=== PATIENT | male | born 2000 | race Caucasian/White ===

== ENCOUNTER 2022-12-07 21:56 | Emergency (ER) | payer SELFPAY ==
[2022-12-07 21:57] VITALS: BP 128/75; PULSE 107; RESP 20; TEMP 36.7; O2SAT 100
--- NOTE | 2022-12-07 22:13 | PC.NURSE ---
Patient states he refuses anything to do with needles and we ain't going to be stick him with shit. Attending aware
--- NOTE | 2022-12-07 22:27 | XR_ITS ---
PROCEDURE INFORMATION: Exam: XR Chest Exam date and time: 12/07/2022 10:30 PM Age: 22 years old Clinical indication: Screening exam; Other screening; Patient HX: Medical clearance for penitentiary. Possible ETOH. Patient extremely uncooperative, would not let me repeat cxr to include right side of chest. TECHNIQUE: Imaging protocol: Radiologic exam of the chest. Views: 1 view. COMPARISON: No relevant prior studies available. FINDINGS: Lungs: Visualized portions of the lungs are clear. No active infiltrate. Pleural spaces: Unremarkable. No pleural effusion. No pneumothorax. Heart/Mediastinum: Unremarkable. No cardiomegaly. Bones/joints: Unremarkable. Soft tissues: Lateral portion of the right lower chest not included on the film. IMPRESSION: No acute abnormality
[2022-12-07 22:51] VITALS: BP 124/79; PULSE 102; RESP 20; TEMP 36.6
[2022-12-07 23:04] LABS: Barbiturates Screen,Urine Negative ng/ml (<200); Benzodiazepines Screen,Urine Negative ng/ml (<200)
[2022-12-07 23:05] LABS: Cannabinoid Screen,Urine Positive ng/ml (<50)
[2022-12-07 23:06] LABS: Cocaine Screen,Urine Negative ng/ml (<300); Methadone Screen,Urine Negative ng/ml (<300)
[2022-12-07 23:07] LABS: Opiate Screen,Urine Negative ng/ml (<300); Phencyclidine Screen,Urine Negative ng/ml (<25)
[2022-12-07 23:21] LABS: Amphetamine/Metha Screen,Urine Positive ng/ml (<1000)
--- NOTE | 2022-12-08 03:34 | HMH.EDGENADL ---
Discharge Plan Disposition Patient Disposition: Home, Self-Care Prescriptions Prescriptions: No Action No Known Home Medications Referrals Follow up/Referrals: Provider,MD Casimiro [Primary Care Provider] - See instructions Activity Restrictions/Add. Instructions Additional Instructions/Restrictions: You came in with a cough for medical clearance. You have no complaints. Your ultrasound exam for looking at your heart, liver,kidney or bleeding in the abdomen was negative. Chest x-ray is negative I am discharging you in the care of the sheep herder Clinical Impressions Clinical Impression: Encounter for medical clearance for patient hold Discharge ED Provider: Malgorzata Scott Adult HPI General Chief complaint: Medical Clearance Stated complaint: medical clearence Time Seen by Provider: 12/07/22 22:16 Mode of Arrival: Ambulatory Source of Information: Patient and Law Enforcement Limitations: No Limitations Description of Symptoms (Recalled from ER Triage Doc. by RN): 22 M [place] [employer] after being arrested for DUI and posession of Methamphetamines. Patient is irrate, restless, and loud. Patient denies hurting anywhere, specifically his chest. Denies SOA. Patient is handcuffed with right hand to the bed with officer and Michael at bedside. Patient smells of ETOH. Related Data Home Medications Medication Instructions Recorded Confirmed No Known Home Medications 12/07/22 12/07/22 Allergies Allergy/AdvReac Type Severity Reaction Status Date / Time No Known Allergies Allergy Verified 12/07/22 22:[address] [facility] Disclaimer: The information contained in this section may have been updated after the patient was seen, as this information can be updated by other users. Medical History (Updated 12/07/22 @ 22:38 by Malgorzata Scott MD) ADHD Surgical History (Updated 12/07/22 @ 22:10 by Vasu Nolasco, RN) No history of previous surgery Family History (Updated 12/07/22 @ 22:10 by Vasu Nolasco, RN) Other No significant family history Social History Smoking Status: Current every day smoker Medical Decision Making Vital Signs: 12/07/22 21:57 12/07/22 22:51 Temperature 98.1 F 98 F Temperature Source Tympanic Pulse Rate 102 H Pulse Rate [Left] 107 H Respiratory Rate 20 20 Blood Pressure 124/79 Blood Pressure [Right Arm] 128/75 Blood Pressure Mean [Right Arm] 92 Blood Pressure Source [Right Arm] Automatic Cuff Blood Pressure Position [Right Arm] Sitting 02 Sat by Pulse Oximetry 100 Oxygen Delivery Method Room Air Lab Data Lab Results 12/07/22 22:46: Urine Opiates Screen Negative, Urine Methadone Screen Negative, Ur Barbituates Screen Negative, Ur Phencyclidine Scrn Negative, Ur Amphetamines Screen Positive H, U Benzodiazepines Scrn Negative, Urine Cocaine Screen Negative, U Marijuana (THC) Screen Positive H Orders (Tests/Meds): ORDERS Category Date Time Status CXR --portable [XR chest portable] Stat Exams 12/07/22 22:27 Completed Drug Screen,Urine Stat Lab 12/07/22 22:46 Completed Critical Care Time Critical Care Time Attestation: On 12/07/22, the high probability of a clinically significant, sudden or life threatening deterioration of the following system(s) required my full and direct attention, intervention and personal management. The time I documented below is in addition to time spent performing reported procedures but includes the following listed in this critical care notation.
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
== END 2022-12-07 22:53 | disposition home or self-care (01) ==
PROVIDERS: Emergency Provider Emergency Medicine
DX: F17.210 Nicotine dependence, cigarettes, uncomplicated (principal); F90.9 Attention-deficit hyperactivity disorder, unspecified type; Z02.89 Encounter for other administrative examinations; F12.90 Cannabis use, unspecified, uncomplicated
CPT/HCPCS: 71045; 80305; 99283

== ENCOUNTER 2023-01-18 14:24 | Emergency (ER) | payer OTHER, SELFPAY ==
[2023-01-18 14:32] VITALS: PULSE 104; O2SAT 99
[2023-01-18 14:37] VITALS: BP 144/108; PULSE 118; RESP 16; TEMP 36.8; O2SAT 97; BMI 23.6
--- NOTE | 2023-01-18 14:49 | ECG_ITS ---
APPROVED REPORT Exam: Resting ECG HR:82 bpm ECG Measurements Heart Rate 82 AXES AL 118 P -65 QRSd 93 QRS 102 QT 322 T 47 QTc 360 Conclusion JUNCTIONAL RHYTHM RIGHT AXIS DEVIATION [QRS AXIS > 100] ABNORMAL ECG UNCONFIRMED REPORT Electronically signed by : Jose Mejía MD 01/18/2023 20:14:42
[2023-01-18 14:55] VITALS: BP 139/98; PULSE 102; RESP 20; TEMP 36.8; O2SAT 97
--- NOTE | 2023-01-18 14:55 | HMH.EDGENADL ---
Discharge Plan Disposition Patient Disposition: Xfer Other Chief Complaint: Medical Clearance Prescriptions Prescriptions: No Action No Known Home Medications Referrals Follow up/Referrals: Provider,MD Casimiro [Primary Care Provider] - See instructions Clinical Impressions Clinical Impression: Medical clearance for incarceration, Methamphetamine abuse Discharge ED Provider: Ramon Ritchie General Adult HPI General Chief complaint: Medical Clearance Stated complaint: medical clearence Time Seen by Provider: 01/18/23 14:28 Mode of Arrival: Ambulatory Source of Information: Patient Limitations: No Limitations Description of Symptoms (Recalled from ER Triage Doc. by RN): pt presents to ED with officer for medical clearance. pt had bench warrent for arrest. officer states that pt reports to snorting meth and xanax within the past 4 hours. History of Present Illness HPI narrative: Is a 22-year-old male with history of polysubstance abuse presenting with no complaints, but for medical clearance. Patient states that about 3 to 4 hours prior to arrival, snorted Xanax and methamphetamines. Patient denies chest pain, shortness of breath, hallucinations, or any other concerns. Police brought in for medical clearance for correction. Related Data Home Medications Medication Instructions Recorded Confirmed No Known Home Medications 12/07/22 12/07/22 Allergies Allergy/AdvReac Type Severity Reaction Status Date / Time No Known Allergies Allergy Verified 12/07/22 22:10 [facility] Disclaimer: The information contained in this section may have been updated after the patient was seen, as this information can be updated by other users. Medical History ADHD Surgical History No history of previous surgery Family History Other No significant family history Social History (Updated 12/08/22 @ 03:41 by Malgorzata cSott MD) Smoking Status: Current every day smoker alcohol intake: current current occupational status: unemployed Travel in the last 8 weeks: Inside the [place] ROS Obtained: Yes All systems reviewed & no additional complaints except as documented Physical Exam General General appearance: alert, in no apparent distress and other ( ) Head Head exam: atraumatic and normocephalic Eye Eye exam: Present normal appearance, PERRL and EOMI ENT ENT exam: Present mucous membranes moist Neck Neck exam: Present normal inspection, full ROM and trachea midline Respiratory Respiratory exam: Absent respiratory distress, wheezes, stridor, accessory muscle use or prolonged expiratory phase Cardiovascular Cardiovascular exam: Present regular rate and normal rhythm Abdominal Exam Abdominal exam: Present soft; Absent distention, tenderness, guarding, rebound, rigidity or normal bowel sounds Extremities Exam Extremities exam: Absent edema Neurological Exam Neurological exam: Present alert, oriented X3, CN II-XII intact and normal gait; Absent motor sensory deficit Skin Skin exam: Present warm and dry; Absent diaphoresis or erythema Medical Decision Making Medical Records Medical records reviewed: Yes I reviewed the patient's medical records. Elijah Inquiry Pt receiving controlled substance: No Elijah was queried for this patient: No Vital Signs: 01/18/23 14:37 01/18/23 14:32 Temperature 98.2 F Temperature Source Oral Pulse Rate 104 H Pulse Rate [Left] 118 H Respiratory Rate 16 Blood Pressure [Right Arm] 144/108 H Blood Pressure Mean [Right Arm] 120 02 Sat by Pulse Oximetry 97 99 Oxygen Delivery Method Room Air Medical Decision Narrative: Is a 22-year-old male with history of polysubstance abuse presenting with no complaints, but for medical clearance. Patient states that about 3 to 4 hours prior to arrival, sn
== END 2023-01-18 14:57 | disposition other institution (70) ==
PROVIDERS: Emergency Provider Emergency Medicine
DX: F15.10 Other stimulant abuse, uncomplicated (principal); F90.9 Attention-deficit hyperactivity disorder, unspecified type; F17.200 Nicotine dependence, unspecified, uncomplicated
CPT/HCPCS: 93005; 99284